=== PATIENT | female | born 1985 | race Caucasian/White ===

== ENCOUNTER → 2019-02-26 | Outpatient (CLI) | payer OTHER | LOC: LAB FS 10:57 | PROVIDERS: ATTEND Obstetrics & Gynecology | DX: N91.2 Amenorrhea, unspecified (principal) | CPT/HCPCS: 36415; 84702 ==

== ENCOUNTER 2019-06-01 15:12 | Emergency (ER) | payer OTHER ==
[~2019-06-01] VITALS: Ht 146 cm; Wt 45.6 kg
--- NOTE | 2019-06-01 15:31 | ED Cough/URI ---
General Chief Complaint: Respiratory Problems Stated Complaint: SOB History of Present Illness Date Seen by Provider: Jun 01, 2019 Time Seen by Provider: 15:28 Initial Comments This patient is a 33-year-old female presents to the emergency department c omplaining of ongoing cough sore throat and upper respiratory type symptoms. Patient describes this "to breathe at times. Patient states she been taking Advair, home as prescribed by PCP patient states was also prescribed amoxicillin without any help or relief. Patient denies fever. Patient states that she believes she had a negative strep and a negative flu and urgent care. 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 We did discuss at length. With patient. Patient's symptoms having gone on for more than 14 days. However patient is concerns chronic virus. We'll do evaluation to see if the patient meets the hopkins virus protocol. Patient will get chest x-ray and we'll repeat the strep and flu swabs. We'll evaluate her further as needed. Nursing staff will apply isolation protocol for further evaluation the patient Patient states the shortness of breath could be just because she has anxiety issues. Patient does not have any fever. And her symptoms have been more than 14 days as stated above. Timing/Duration: week (2-3 weeks) Severity/Quality: mild Associated Symptoms: cough, shortness of breath Allergies and Home Medications Allergies Coded Allergies: No Known Drug Allergies (Unverified , 06/01/19) Patient Home Medication List Home Medication List Reviewed: Yes Review of Systems Review of Systems Constitutional: no symptoms reported, see HPI; No chills, No diaphoresis, No dizziness, No fever, No malaise, No weakness, No weight gain, No weight loss, No other EENTM: see HPI, no symptoms reported; No ear discharge, No hearing loss, No ear pain, No blurred vision, No double vision, No eye pain, No tearing, No vision loss, No dental problems, No hoarseness, No mouth pain, No mouth swelling, No epistaxis, No nose congestion, No nose pain, No throat pain, No throat swelling, No other Respiratory: see HPI, cough, dyspnea on exertion Cardiovascular: No no symptoms reported, No see HPI, No chest pain, No edema, No Hx of Intervention, No palpitations, No syncope, No vascular heart diseas, No other Gastrointestinal: No RUQ, No LUQ, No RLQ, No LLQ, No no symptoms reported, No see HPI, No abdominal pain, No constipation, No diarrhea, No dysphagia, No sandi temesis, No heartburn, No jaundice, No loss of appetite, No melena, No nausea, No vomiting, No other Genitourinary: No no symptoms reported, No see HPI, No decreased output, No discharge, No dysuria, No frequency, No hematuria, No hesitancy, No incontinence, No nocturia, No pain, No other Musculoskeletal: No no symptoms reported, No see HPI, No back pain, No gout, No joint pain, No joint swelling, No muscle pain, No muscle stiffness, No muscle cramps, No muscle twitching, No muscle weakness, No neck pain, No other Skin: No no symptoms reported, No see HPI, No change in color, No change in hair/nails, No dryness, No hx of skin cancer, No lesions, No lumps, No pruritus, No rash, No other Physical Exam Capillary Refill : Height: '" Weight: lbs. oz. kg; BMI Method: General Appearance: WD/WN, no apparent distress; No mild distress, No moderate distress, No severe distress, No cachetic, No obese, No thin, No other Eyes: Bilateral Eye Normal Inspection, Bilateral Eye PERRL, Bilateral Eye EOMI HEENT: PERRL/EOMI, normal ENT inspection, TMs normal, pharyngeal erythema Neck: non-tender, full range of motion, supple, normal inspection, carotid bruit Respiratory: chest non-tender, lungs clear, normal breath sounds, no respiratory distress, no accessory muscle use Cardiovascular: normal peripheral pulses, regular rate, rhythm, no edema, no gallop, no JVD, no murmur Progress/Results/Core Measures Suspected Sepsis SIRS Temperature: Pulse: Respiratory Rate: Blood Pressure / Mean: Results/Orders Lab Results Laboratory Tests Test 06/01/19 15:49 Range/Units Group A Streptococcus Screen NEGATIVE NEGATIVE Micro Results Microbiology 06/01/19 Influenza Types A,B Antigen (GREG) - Final, Complete My Orders Orders - SAROJ THOMAS MD Chest 1 View Ap/Pa Only (06/01/19 15:26) Influenza A And B Antigens (06/01/19 15:26) Rapid Strep A Screen (06/01/19 15:26) Albuterol/Ipra Inhalation Soln (Duoneb I (06/01/19 16:00) Svn Small Volume Nebulizer (06/01/19 15:47) Diphenhydramine Tablet (Benadryl Tablet) (06/01/19 16:00) Medications Given in ED Current Medications Medications Dose Ordered Sig/Zeina Route Start Time Stop Time Status Last Admin Dose Admin Albuterol/ Ipratropium 3 ml ONCE ONCE INH 06/01/19 16:00 06/01/19 16:01 DC 06/01/19 15:56 3 ML Diphenhydramine HCl 25 mg ONCE ONCE PO 06/01/19 16:00 06/01/19 16:01 DC 06/01/19 16:12 25 MG Vital Signs/I&O Capillary Refill : Progress Note : Progress Note 1535 patient is declining us to perform a hopkins virus evaluation. She is agreeable for chest x-ray of breath. In repeat a strep and flu swab. Again patient is declining a hopkins virus for evaluation. 1620 name of evaluation in the emergency department. The patient has negative fever symptoms have been been on 14 days patient has no first hand exposure to someone who has tested positive for hopkins and the patient has not herself traveled into an endemic area. We did discuss at length with patient about further evaluation patient declines as stated above. Patient states she just believes that her anxiety acting up. Patient is on Advair at home we will add a Proventil inhaler. Patient is to follow the following instructions. I'll up with her PCP in 2-3 days. If patient has concerned she should self quarantine herself as instructed. Treatments In general, follow these three basic rules: (1) Keep warm and rest as much as possible. If you feel like resting, you should. (2) Take plenty of fluids. Food is not as important since appetite will return when you are well. (3) For fever, take Tylenol or Motrin in normal doses (see label on the bottle). If cough is present: Humidification and drinking lots of fluids helps to moisten and loosen up sticky mucus. Non-prescription drugs designed to suppress cough, such as Delysm, Robitussin, Mucinex are occasionally helpful. If you use an inhaler, you might need to use it more often. If throat is sore: Gargle with warm water (1/2 tsp salt in 1/2 glass of water). Try cold packs to the outside of your throat to help ease the pain of swallowing. Humidification of the air you breathe (use vaporizer, pans of evaporating water, or steaming tub or shower) and lots of fluids help. If temperature is elevated: Fluids are doubly important. Fever medicine (such as Tylenol or Motrin) should control temperature. Persistent temperature elevation of 103-104 degrees is a danger sign. If nausea and/or diarrhea are present: Eat only clear liquids, soups, or juices as tolerated. Remember fluids are important to prevent dehydration. If your symptoms worsen call [facility] for further instructions, especially if you notice: Persistent temperature elevation greater than 103-104 degrees despite fever medication Bloody sputum or increasing chest pain Increasing difficulty getting your breath Stiff neck preventing bending neck and placing chin on chest Diagnostic Imaging Diagonstic Imaging: Xray Plain Films/CT/US/NM/MRI: chest Comments Normal chest x-ray Departure Impression Primary Impression: Viral upper respiratory infection Disposition: 01 HOME, SELF-CARE Condition: Stable Departure-Patient Inst. Decision time for Depature: 16:21 Referrals: ALLY SOLIS APRN (PCP) Primary Care Physician Patient Instructions: Viral Upper Respiratory Infection, Adult (DC) Add. Discharge Instructions: Treatments In general, follow these three basic rules: (1) Keep warm and rest as much as possible. If you feel like resting, you should. (2) Take plenty of fluids. Food is not as important since appetite will return when you are well. (3) For fever, take Tylenol or Motrin in normal doses (see label on the bottle). If cough is present: Humidification and drinking lots of fluids helps to moisten and loosen up sticky mucus. Non-prescription drugs designed to suppress cough, such as Delysm, Robitussin, Mucinex are occasionally helpful. If you use an inhaler, you might need to use it more often. If throat is sore: Gargle with warm water (1/2 tsp salt in 1/2 glass of water). Try cold packs to the outside of your throat to help ease the pain of swallowing. Humidification of the air you breathe (use vaporizer, pans of evaporating water, or steaming tub or shower) and lots of fluids help. If temperature is elevated: Fluids are doubly important. Fever medicine (such as Tylenol or Motrin) should control temperature. Persistent temperature elevation of 103-104 degrees is a danger sign. If nausea and/or diarrhea are present: Eat only clear liquids, soups, or juices as tolerated. Remember fluids are important to prevent dehydration. If your symptoms worsen call [facility] for further instructions, dacia mahmood if you notice: Persistent temperature elevation greater than 103-104 degrees despite fever medication Bloody sputum or increasing chest pain Increasing difficulty getting your breath Stiff neck preventing bending neck and placing chin on chest All discharge instructions reviewed with patient and/or family. Voiced understanding. Scripts Albuterol Sulfate (VENTOLIN HFA) 1 Puff Puff 2 PUFF INH Q4H for 10 Days, #1 EACH 0 Refills 1 PUFF = 90 MCG Prov: SAROJ THOMAS MD 06/01/19 SAROJ THOMAS MD Jun 01, 2019 15:31
--- NOTE | 2019-06-01 15:35 | NUR ---
Patient declined any further testing at this time. States that she just wants an xray and believes part of her shortness of breath is related to anxiety.
--- NOTE | 2019-06-01 15:54 | Diagnostic Imaging Report ---
INDICATION: Chest tightness. TIME OF EXAM: 3:43 p.m. COMPARISON: No prior studies are available for comparison. The heart size is normal. The pulmonary vascularity is unremarkable. The lungs are clear. No infiltrate, effusion or pneumothorax is detected. IMPRESSION: No acute cardiopulmonary process is detected. Dictated by: Dictated on workstation # [id number]
[2019-06-01] MEDS ORDERED: RT-ALBUTEROL/IPRATROPIUM 3 ML (DUONEB) VIAL INH ONE (16:00)
[2019-06-01] MEDS ORDERED: diphenhydrAMINE 25 MG TAB (BENADRYL) PO ONE (16:00)
--- NOTE | 2019-06-01 16:19 | NUR ---
Patient does not meet any critiera for testing of Covid-19. She has not traveled out of the [facility]. She does not have a fever or had exposure with a person confirmed with COVID-19.
[2019-06-01] MEDS ORDERED: RT-ALBUINH INH (16:23)
[2019-06-01 16:26] VITALS: BP 145/81
== END 2019-06-01 16:26 | disposition home or self-care (01) ==
LOC: MERGE 15:14 → ER FS 15:14
DX: J06.9 Acute upper respiratory infection, unspecified (principal)
CPT/HCPCS: 71045; 87430; 87804

== ENCOUNTER 2019-06-04 01:17 | Emergency (ER) | payer OTHER ==
[~2019-06-04] VITALS: Ht 147 cm; Wt 45.0 kg
[~2019-06-04 01:17] MED LIST: RT-ALBUINH INH
--- OUTSIDE RECORDS SUMMARY | 2019-06-04 01:24 | XMS REPORT | Continuity of Care Document ---
Author Organization Unknown Address Unknown Phone Unavailable Allergies There is no data. Medications There is no data. Problems Date Dx Coded Attending Type Code Diagnosis Diagnosed By 03/04/2019 SEALSEBASTIAN Yeboah DO E Ot N91.2 AMENORRHEA, UNSPECIFIED 04/02/2019 SEALS DO, SEBASTIAN E Ot N91.2 AMENORRHEA, UNSPECIFIED Procedures There is no data. Results Test Result Range Serum or plasma choriogonadotropin measu rement (units/volume) - 02/26/19 11:35 Serum or plasma choriogonadotropin measurement (units/ volume) < m[iU]/mL <5 Encounters ACCT No. Visit Date/Time Discharge Status Pt. Type Provider Facility Loc./Unit Complaint [id number] 05/30/2019 16:40:00 05/30/2019 23:59:5 9 [facility] Outpatient ALLY SOLIS [facility] JAZMINE RODRIGUES [facility] [id number] 02/26/2019 10:57:00 019 23:59:59 [facility] Outpatient SEBASTIAN STANFORD DO [facility] LAB FS AMENORRHEA
--- NOTE | 2019-06-04 01:55 | ED General ---
General Chief Complaint: Psych/Social Disorder Stated Complaint: ANIETXY Nursing Triage Note: Pt is complaining of a "tightness" in her throat that she thinks is probably related to anxiety. Pt was seen in the ER two nights ago for the same complaint. Pt states she recently started Buspirone but doesn't feel like it does anything for her anxiety. Nursing Sepsis Screen: No Definite Risk History of Present Illness Date Seen by Provider: Jun 04, 2019 Time Seen by Provider: 01:25 Initial Comments Patient is here with feeling that there is something there when she swallows in the last several days had multiple visits to doctors in the emergency room for evaluation with little help she was swallowing some amino acid supplement tablets like something got caught and began coughing. Not sure if that's what caused it. There is a lot of stress she does have concerns about mold in their house her daughter just had a tonsillectomy [place] stressed about coronavirus and other things and she also realizes can all be due to that. No fever no chills no body aches no headache has had a little loose stool not sleeping well Timing/Duration: 4-5 Days Severity: Mild Modifying Factors: improves with Eating Associated Systoms: No Cough; Loss of Appetite, Nausea/Vomiting; No Shortness of Air, No Weakness Allergies and Home Medications Allergies Coded Allergies: No Known Drug Allergies (Unverified , 06/02/19) Home Medications Albuterol Sulfate 1 Puff Puff, 2 PUFF INH Q4H 1 PUFF = 90 MCG Prescribed by: SAROJ THOMAS on 06/01/19 [id number] Patient Home Medication List Home Medication List Reviewed: Yes Review of Systems Review of Systems Constitutional: No chills, No fever; malaise EENTM: throat swelling; No hoarseness, No nose congestion Respiratory: No cough, No hemoptysis, No orthopnea, No wheezing Cardiovascular: No edema, No palpitations Gastrointestinal: No abdominal pain, No nausea, No vomiting Genitourinary: No dysuria, No frequency Musculoskeletal: No back pain, No joint swelling, No muscle weakness; neck pain Skin: No lesions, No rash Psychiatric/Neurological: Anxiety Past Dvwlkfq-Yfrvzb-Jdyrzq Hx Past Med/Social Hx: Reviewed Nursing Past Med/Soc Hx Patient Social History Alcohol Use: Denies Use Recreational Drug Use: No Smoking Status: Never a Smoker 2nd Hand Smoke Exposure: No Recent Foreign Travel: No Contact w/Someone Who Travel: No Recent Infectious Disease Expo: No Recent Hopitalizations: No Physical Abuse: No Sexual Abuse: No Seasonal Allergies Seasonal Allergies: Yes Past Medical History Surgeries: No Respiratory: No Cardiac: No Neurological: No Genitourinary: No Gastrointestinal: No Musculoskeletal: No Endocrine: No HEENT: No Cancer: No Psychosocial: Yes Anxiety Integumentary: No Blood Disorders: No Physical Exam Vital Signs Vital Signs - First Documented 06/04/19 01:22 Temp 37.4 Pulse 87 Resp 18 B/P (MAP) 143/93 (110) Pulse Ox 100 O2 Delivery Room Air Capillary Refill : Less Than 3 Seconds Height, Weight, BMI Height: '" Weight: lbs. oz. kg; 20.00 BMI Method: General Appearance: Anxious, Mild Distress Eyes: Bilateral Eye PERRL, Bilateral Eye EOMI HEENT: PERRL/EOMI, TMs Normal, Normal ENT Inspection, Pharynx Normal Neck: Full Range of Motion, Normal Inspection, Non Tender; No Lymphadenopathy (L), No Lymphadenopathy (R) Respiratory: Lungs Clear, Normal Breath Sounds Cardiovascular: Regular Rate, Rhythm Gastrointestinal: Normal Bowel Sounds, No Organomegaly; No Distended, No Tenderness Back: Normal Inspection, No CVA Tenderness Extremity: No No Pedal Edema Neurologic/Psychiatric: Alert, Oriented x3, No Motor/Sensory Deficits Skin: Normal Color, Warm/Dry Progress/Results/Core Measures Suspected Sepsis Recent Fever Within 48 Hours: No Infection Criteria Present: None New/Unexplained Altered Menta: No Sepsis Screen: No Definite Risk SIRS Temperature: Pulse: 87 Respiratory Rate: 18 Blood Pressure 143 /93 Mean: 110 Results/Orders My Orders Orders - MARISSA FONSECA JR, MD Ct Neck (Soft Tissue) W (06/04/19 01:51) Ed Iv/Invasive Line Start (06/04/19 02:04) Iohexol Injection (Omnipaque 350 Mg/Ml 1 (06/04/19 02:15) Received Contrast (Hold Metformin- Contr (06/04/19 02:15) Sodium Chloride Flush (Catheter Flush Sy (06/04/19 02:15) Ns (Ivpb) (Sodium Chloride 0.9% Ivpb Bag (06/04/19 02:15) Chest 1 View Ap/Pa Only (06/04/19 02:08) Medications Given in ED Current Medications Medications Dose Ordered Sig/Zeina Route Start Time Stop Time Status Last Admin Dose Admin Iohexol 75 ml ONCE ONCE IV 06/04/19 02:15 06/04/19 02:16 DC 06/04/19 02:18 75 ML Sodium Chloride 10 ml NEEDED PRN IV 06/04/19 02:15 06/04/19 02:18 10 ML Sodium Chloride 100 ml ONCE ONCE IV 06/04/19 02:15 06/04/19 02:16 DC 06/04/19 02:18 75 ML Vital Signs/I&O 06/04/19 01:22 Temp 37.4 Pulse 87 Resp 18 B/P (MAP) 143/93 (110) Pulse Ox 100 O2 Delivery Room Air Capillary Refill : Less Than 3 Seconds Blood Pressure Mean: 110 Progress Note : Time: 03:[address] scan demonstrates a small thyroglossal duct cyst that appears to be infected we'll go ahead with Rocephin IM and follow that up with Augmentin we'll have her follow up with her PCP for further care of this. Departure Impression Primary Impression: Thyroglossal duct cyst Disposition: HOME, SELF-CARE Condition: Stable Departure-Patient Inst. Referrals: ALLY SOLIS APRN (PCP/Family) Primary Care Physician Scripts Amoxicillin/Potassium Clav (Augmentin 875-125 Tablet) 1 Each Tablet 1 EACH PO BID, #14 TAB 0 Refills Prov: MARISSA FONSECA JR, MD 06/04/19 MARISSA FONSECA JR, MD Jun 04, 2019 01:55
[2019-06-04] MEDS ORDERED: HOLD METFORMIN - RECEIVED CONTRAST 20 ML VIAL IV SCH (02:15)
[2019-06-04] MEDS ORDERED: IOHEXOL 350 MG/ML 100 ML (OMNIPAQUE 350) VIAL IV ONE (02:15)
[2019-06-04] MEDS ORDERED: NS 100 ML (IVPB) BAG IV ONE (02:15)
[2019-06-04] MEDS ORDERED: CATHETER FLUSH 10 ML SYR IV PRN (02:15)
[2019-06-04] MEDS ORDERED: AMOX-358 PO (03:27)
[2019-06-04] MEDS ORDERED: cefTRIAXone FOR IV USE 1,000 MG in WATER (STERILE) FOR INJECTION 10 ML IV ONE (03:30)
[2019-06-04 03:38] VITALS: BP 138/88
--- NOTE | 2019-06-04 06:04 | Diagnostic Imaging Report ---
INDICATION: Shortness of breath. Comparison with 06/01/2019. FINDINGS: Portable chest shows lungs to be well-aerated and clear. Heart is not enlarged. No pneumothorax or pleural effusion. No bony abnormalities. IMPRESSION: Normal portable chest. No significant change since previous exam. Dictated by: Dictated on workstation # [id number]
--- NOTE | 2019-06-04 08:08 | Diagnostic Imaging Report ---
PROCEDURE: CT neck soft tissue with contrast. TECHNIQUE: Multiple contiguous axial images were obtained through the neck after the administration of contrast. Auto Exposure Controls were utilized during the CT exam to meet ALARA standards for radiation dose reduction. INDICATION: Shortness of breath. Difficulty swallowing. COMPARISON: None. FINDINGS: A small cystic structure seen in the midline of the neck interposed between the strap muscles anterior and inferior to the hyoid measuring 0.5 x 0.4 cm and 0.8 cm craniocaudal. There is also a component of this cystic structure which is superior and posterior to this more superficial collection left of midline measuring 0.7 x 0.5 cm and 0.9 cm craniocaudal. The posterior nasopharynx and oropharynx demonstrate appropriate symmetry. There is no displacement of the parapharyngeal fat planes. There is no abnormal process evident within the prevertebral or retropharyngeal space. There is no evidence of abnormal thickening of the epiglottis or aryepiglottic folds. The vocal folds appear symmetric. The parotid, submandibular and thyroid gland are unremarkable. No pathologically enlarged cervical lymph nodes are evident. No focal inflammatory changes are demonstrated. The vascular structures the neck demonstrate no evidence of high-grade stenosis on this nondedicated exam. The visualized lung apices are clear. The visualized intracranial contents demonstrate no evidence of pathologic intracranial enhancement or intracranial mass effect. Visualized orbital contents are unremarkable. The visualized paranasal sinuses are clear. The mastoids and middle ears are clear. No acute osseous abnormality in the cervical spine. IMPRESSION: 1. Small bilobed cystic structure left of midline posterior to the hyoid extending into the more superficial soft tissues of the neck in the midline interposed between the strap muscles. This appearance is suggestive of a thyroglossal duct cyst. The wall is somewhat thickened, which may represent inflammatory changes. No cervical lymphadenopathy is seen. 2. Unremarkable appearance of the aerodigestive tract. No airway narrowing or suspicious masses. Agree with overnight report. Dictated by: Dictated on workstation # [id number]
== END 2019-06-04 03:38 | disposition home or self-care (01) ==
LOC: EDUNIT# 01:17 → ER FS 01:20
DX: Q89.2 Congenital malformations of other endocrine glands (principal)
CPT/HCPCS: 70491; 71045

== ENCOUNTER 2019-06-06 05:41 | Emergency (ER) | payer OTHER ==
[~2019-06-06] VITALS: Ht 147.3 cm; Wt 45.4 kg
[~2019-06-06 05:41] MED LIST changes: +AMOX-358 PO
--- OUTSIDE RECORDS SUMMARY | 2019-06-06 05:47 | XMS REPORT | Continuity of Care Document ---
Author Organization Unknown Address Unknown Phone Unavailable Allergies Active Description Code Type Severity Reaction Onset Reported/Identified Relationship to Patient Clinical Status Yes No Known Drug Allergies [id number] Drug Allergy Unknown N/A 06/01/2019 Medications There is no data. Problems Date Dx Coded Attending Type Code Diagnosis Diagnosed By 03/04/2019 SEALS DO, SEBASTIAN E Ot N91.2 AMENORRHEA, UNSPECIFIED 04/02/2019 SEALS DO, SEBASTIAN E Ot N91.2 AMENORRHEA, UNSPECIFIED 06/04/2019 SEALS DO, SEBASTIAN E Ot N91.2 AMENORRHEA, UNSPECIFIED 06/04/2019 Ot J06.9 ACUT E UPPER RESPIRATORY INFECTION, UNSPE 06/04/2019 Ot R05 COUGH Procedures There is no data. Results Test Result Range Serum or plasma choriogonadotropin measu rement (units/volume) - 02/26/19 11:35 Serum or plasma choriogonadotropin measurement (units/ volume) < m[iU]/mL <5 Bacterial throat culture - 06/01/19 15:4 9 Bacterial throat culture NBS NRG Encounters ACCT No. Visit Date/Time Discharge Status Pt. Type Provider Facility Loc./Unit Complaint [id number] 05/30/2019 16:40:00 05/30/2019 23:59:5 9 [facility] Outpatient ALLY SOLIS [facility] JAZMINE RODRIGUES [facility] [id number] 06/04/2019 01:20:00 020 03:38:00 DIS Emergency RAYMUNDO ARROYO, MARISSA Pedraza [facility] ER FS ANIETXY [id number] 02/26/2019 10:57:00 019 23:59:59 C[facility] Outpatient SEALS DO, SEBASTIAN E [facility] LAB FS AMENORRHEA [id number] 06/03/2019 09:53:00 Document Registration
[2019-06-06 06:25] LABS: CLARITY,URINE CLEAR; COLOR,URINE YELLOW; GLUCOSE, URINE (UA) NEGATIVE (NEGATIVE); KETONES,URINE 1+ (NEGATIVE); NITRITE,URINE NEGATIVE (NEGATIVE); PROTEIN,URINE NEGATIVE (NEGATIVE)
[2019-06-06 06:26] LABS: BACTERIA,URINE TRACE /HPF; BILIRUBIN,URINE NEGATIVE (NEGATIVE); LEUKOCYTE ESTERASE ,URINE NEGATIVE (NEGATIVE); SQUAMOUS EPITHELIAL CELL,UR 25-50 /HPF
[2019-06-06 06:45] LABS: HEMATOCRIT 31 % (35-52); HEMOGLOBIN 9.4 G/DL (11.5-16.0); MEAN CORPUSCULAR HEMOGLOBIN 21 PG (25-34); MEAN CORPUSCULAR HGB CONC 31 G/DL (32-36); MEAN CORPUSCULAR VOLUME 69 FL (80-99); MEAN PLATELET VOLUME 10.1 FL (7.4-10.4); PLATELET COUNT 299 10^3/uL (130-400); RED CELL DISTRIBUTION WIDTH 16.6 % (10.0-14.5); WHITE BLOOD COUNT 8.9 10^3/uL (4.3-11.0)
[2019-06-06 06:46] LABS: BASOPHILS # (AUTO) 0.1 10^3/uL (0.0-0.1); BASOPHILS % (AUTO) 1 % (0-10); EOSINOPHILS % (AUTO) 0 % (0-10); LYMPHOCYTES # (AUTO) 1.6 X 10^3 (1.0-4.0); LYMPHOCYTES % (AUTO) 18 % (12-44); MONOCYTES # (AUTO) 0.6 X 10^3 (0.0-1.0); MONOCYTES % (AUTO) 7 % (0-12); NEUTROPHILS # (AUTO) 6.6 X 10^3 (1.8-7.8); NEUTROPHILS % (AUTO) 74 % (42-75)
--- NOTE | 2019-06-06 06:54 | ED General ---
General Chief Complaint: Back Problems Stated Complaint: SWELLING OF NECK AND SIDE PAIN Nursing Triage Note: PT. STATED SHE WOKE UP TO RIGHT FLANK PAIN THIS AM. SHE REPORTED SHE HAS NAUSEA AND HAS BEEN DRY HEAVING. PT. STATED HER NECK IS MORE SWOLLEN THAN IT HAS BEEN. PT. HAS BEEN TAKING IBUPROFEN AND AN ANTIBIOTIC FOR HER NECK. PT. WILL NOT BE ABLE TO SEE DOCTOR ROSANNE UNTIL NEXT WEEK. 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 she got IM Rocephin, was prescribed Augmentin says she did fill the prescription and took those prescribed doses yesterday patient now presents complaining that she did not sleep all night has right flank pain pain throughout the abdomen nausea vomiting some diarrhea slight urinary symptoms and feels her neck is more swollen Allergies and Home Medications Allergies Coded Allergies: No Known Drug Allergies (Unverified , 06/02/19) Home Medications Albuterol Sulfate 1 Puff Puff, 2 PUFF INH Q4H 1 PUFF = 90 MCG Prescribed by: SAROJ THOMAS on 06/01/19 1623 Amoxicillin/Potassium Clav 1 Each Tablet, 1 EACH PO BID Prescribed by: MARISSA FONSECA on 06/04/19 0327 Patient Home Medication List Home Medication List Reviewed: Yes Review of Systems Review of Systems Constitutional: no symptoms reported Respiratory: no symptoms reported Past Wzxqrfv-Bfxdhl-Exjyvu Hx Patient Social History 2nd Hand Smoke Exposure: No Recent Foreign Travel: No Contact w/Someone Who Travel: No Recent Infectious Disease Expo: No Recent Hopitalizations: No Physical Abuse: No Sexual Abuse: No Mistreated: No Fear: No Seasonal Allergies Seasonal Allergies: Yes Past Medical History Surgeries: No Respiratory: No Cardiac: No Neurological: No Genitourinary: No Gastrointestinal: No Musculoskeletal: No Endocrine: No HEENT: No Cancer: No Psychosocial: Yes Anxiety Integumentary: No Blood Disorders: No Physical Exam Vital Signs Vital Signs - First Documented 06/06/19 05:45 Temp 37.3 Pulse 98 Resp 16 B/P (MAP) 143/84 (103) Pulse Ox 99 O2 Delivery Room Air Capillary Refill : Less Than 3 Seconds Height, Weight, BMI Height: '" Weight: lbs. oz. kg; 20.00 BMI Method: General Appearance: No Apparent Distress, Anxious, Thin Eyes: Bilateral Eye PERRL, Bilateral Eye EOMI HEENT: PERRL/EOMI, TMs Normal, Pharynx Normal; No Tonsillar Exudate, No Tonsillar Enlargement; Other Neck: Full Range of Motion, Normal Inspection, Non Tender, Other (exam is without obvious abnormality) Respiratory: Lungs Clear, Normal Breath Sounds Cardiovascular: Regular Rate, Rhythm Gastrointestinal: Normal Bowel Sounds, Non Tender, Soft; No Rebound, No Tenderness; Other (no CVA tenderness) Focused Exam Lactate Level 06/06/19 06:39: Lactic Acid Level 1.06 Lactic Acid Level Laboratory Tests Test 06/06/19 06:39 Lactic Acid Level 1.06 MMOL/L (0.50-2.00) Progress/Results/Core Measures Suspected Sepsis Recent Fever Within 48 Hours: No Infection Criteria Present: None New/Unexplained Altered Menta: No Sepsis Screen: No Definite Risk SIRS Temperature: Pulse: 98 Respiratory Rate: 16 Laboratory Tests 06/06/19 06:39: White Blood Count 8.9 Blood Pressure 143 /84 Mean: 103 06/06/19 06:39: Lactic Acid Level 1.06 Laboratory Tests 06/06/19 06:39: Creatinine 0.75, Platelet Count 299, Total Bilirubin 0.3 Results/Orders Lab Results Laboratory Tests Test 06/06/19 06:10 06/06/19 06:39 Range/Units Urine Color YELLOW Urine Clarity CLEAR Urine pH 6.0 5-9 Urine Specific [place] 1.025 H 1.016-1.022 Urine Protein NEGATIVE NEGATIVE Urine Glucose (UA) NEGATIVE NEGATIVE Urine Ketones 1+ H NEGATIVE Urine Nitrite NEGATIVE NEGATIVE Urine Bilirubin NEGATIVE NEGATIVE Urine Urobilinogen 0.2 < = 1.0 MG/DL Urine Leukocyte Esterase NEGATIVE NEGATIVE Urine RBC (Auto) NEGATIVE NEGATIVE Urine RBC NONE /HPF Urine WBC 5-10 H /HPF Urine Squamous Epithelial Cells 25-50 H /HPF Urine Crystals NONE /LPF Urine Bacteria TRACE /HPF Urine Casts NONE /LPF Urine Mucus MODERATE H /LPF Urine Culture Indicated YES White Blood Count 8.9 4.3-11.0 10^3/uL Red Blood Count 4.46 4.35-5.85 10^6/uL Hemoglobin 9.4 L 11.5-16.0 G/DL Hematocrit 31 L 35-52 % Mean Corpuscular Volume 69 L 80-99 FL Mean Corpuscular Hemoglobin 21 L 25-34 PG Mean Corpuscular Hemoglobin Concent 31 L 32-36 G/DL Red Cell Distribution Width 16.6 H 10.0-14.5 % Platelet Count 299 130-400 10^3/uL Mean Platelet Volume 10.1 7.4-10.4 FL Neutrophils (%) (Auto) 74 42-75 % Lymphocytes (%) (Auto) 18 12-44 % Monocytes (%) (Auto) 7 0-12 % Eosinophils (%) (Auto) 0 0-10 % Basophils (%) (Auto) 1 0-10 % Neutrophils # (Auto) 6.6 1.8-7.8 X 10^3 Lymphocytes # (Auto) 1.6 1.0-4.0 X 10^3 Monocytes # (Auto) 0.6 0.0-1.0 X 10^3 Eosinophils # (Auto) 0.0 0.0-0.3 10^3/uL Basophils # (Auto) 0.1 0.0-0.1 10^3/uL Sodium Level 138 135-145 MMOL/L Potassium Level 3.2 L 3.6-5.0 MMOL/L Chloride Level 102 98-107 MMOL/L Carbon Dioxide Level 19 L 21-32 MMOL/L Anion Gap 17 H 5-14 MMOL/L Blood Urea Nitrogen 4 L 7-18 MG/DL Creatinine 0.75 0.60-1.30 MG/DL Estimat Glomerular Filtration Rate > 60 BUN/Creatinine Ratio 5 Glucose Level 100 70-105 MG/DL Lactic Acid Level 1.06 0.50-2.00 MMOL/L Calcium Level 9.1 8.5-10.1 MG/DL Corrected Calcium 8.9 8.5-10.1 MG/DL Total Bilirubin 0.3 0.1-1.0 MG/DL Aspartate Amino Transf (AST/SGOT) 16 5-34 U/L Alanine Aminotransferase (ALT/SGPT) 10 0-55 U/L Alkaline Phosphatase 44 40-136 U/L Total Protein 7.1 6.4-8.2 GM/DL Albumin 4.3 3.2-4.5 GM/DL My Orders Orders - MARÍA STOKES MD Urinalysis (06/06/19 06:22) Urine Bedside (06/06/19 06:22) Urine Culture (06/06/19 06:10) Iv/Invasive Line Insertion .IV start (06/06/19 06:30) Cbc With Automated Diff (06/06/19 06:30) Comprehensive Metabolic Panel (06/06/19 06:30) Lactic Acid Analyzer (06/06/19 06:30) Ns Iv 1000 Ml (Sodium Chloride 0.9%) (06/06/19 07:30) Ct Abdomen/Pelvis Wo (06/06/19 07:17) Ns Iv 1000 Ml (Sodium Chloride 0.9%) (06/06/19 07:17) Ondansetron Injection (Zofran Injectio (06/06/19 07:45) Medications Given in ED Current Medications Medications Dose Ordered Sig/Zeina Route Start Time Stop Time Status Last Admin Dose Admin Ondansetron HCl 4 mg ONCE ONCE IVP 06/06/19 07:45 06/06/19 07:46 DC 06/06/19 07:48 4 MG Vital Signs/I&O 06/06/19 05:45 Temp 37.3 Pulse 98 Resp 16 B/P (MAP) 143/84 (103) Pulse Ox 99 O2 Delivery Room Air Capillary Refill : Less Than 3 Seconds Blood Pressure Mean: 103 Progress Note : Progress Note Hemoglobin is 9.4 with an MCV of 69 white blood count 8900 UA shows 25-50 squamous epithelial cells 5-10 whites no leukocyte esterase or nitrites 1+ ketones culture was triggered (patient just received IM Rocephin 2 days ago and is on Augmentin) UCG neg Chemistries show potassium of 3.2 otherwise normal lactic acid normal CT shows just a left ovarian follicle really no acute findings Departure Impression Primary Impression: Right flank pain Additional Impression: Microcytic anemia Disposition: 01 HOME, SELF-CARE Condition: Stable Departure-Patient Inst. Decision time for Depature: 08:57 Referrals: ALLY SOLIS APRN (PCP/Family) Primary Care Physician Patient Instructions: Flank Pain Scripts Ferrous Sulfate (Iron) 325 Mg Tablet 325 MG PO BID, #60 TAB Prov: MARÍA STOKES MD 06/06/19 Ondansetron (Ondansetron Odt) 4 Mg Tab.rapdis 4 MG PO Q6H for na, #12 TAB Prov: MARÍA STOKES MD 06/06/19 MARÍA STOKES MD Jun 06, 2019 06:54
[2019-06-06 07:06] LABS: ALANINE AMINOTRANSFERASE 10 U/L (0-55); ALBUMIN 4.3 GM/DL (3.2-4.5); ALKALINE PHOSPHATASE 44 U/L (40-136); BILIRUBIN,TOTAL 0.3 MG/DL (0.1-1.0); BUN/CREATININE RATIO 5; CALCIUM 9.1 MG/DL (8.5-10.1); CARBON DIOXIDE 19 MMOL/L (21-32); CHLORIDE 102 MMOL/L (98-107); CREATININE SERUM 0.75 MG/DL (0.60-1.30); GFR ESTIMATED > 60; GLUCOSE 100 MG/DL (70-105); POTASSIUM 3.2 MMOL/L (3.6-5.0); SODIUM 138 MMOL/L (135-145); TOTAL PROTEIN 7.1 GM/DL (6.4-8.2)
[2019-06-06] MEDS ORDERED: NS IV 1000 ML 1,000 ML ONE (07:17)
[2019-06-06] MEDS ORDERED: NS IV 1000 ML 1,000 ML IV SCH (07:30)
[2019-06-06] MEDS ORDERED: ONDANSETRON 4 MG/2 ML (SDV) Z0FRAN IVP ONE (07:45)
--- NOTE | 2019-06-06 08:47 | Diagnostic Imaging Report ---
PROCEDURE: CT abdomen and pelvis without contrast. TECHNIQUE: Multiple contiguous axial images were obtained through the abdomen and pelvis without the use of intravenous contrast. Auto Exposure Controls were utilized during the CT exam to meet ALARA standards for radiation dose reduction. DATE: June 06, 2019. COMPARISON: None. INDICATION: 33-year-old female, right flank pain and diarrhea. FINDINGS: There are limitations for evaluation of the abdominal organs, neoplastic processes, abscess, and limited evaluation of the vasculature relating to the lack of intravenous contrast. The visualized portions of the lungs are clear. The heart is not enlarged. There is no pericardial effusion. There is a 5 mm low-attenuation lesion in the left lobe of the liver on axial image 28 which is too small to characterize. The liver is normal in size and contour. The gallbladder is unremarkable. There is no intrahepatic or extrahepatic bile duct dilation. The main pancreatic duct is not abnormally dilated. Limited noncontrast evaluation of the pancreatic parenchyma is unremarkable. The spleen is normal in size. The adrenal glands are unremarkable. There is a 3 mm low-attenuation lesion in the right kidney on axial image 44 which is too small to characterize. The urinary collecting systems are not distended. There is no identified renal or ureteral stone. There are pelvic calcifications consistent with phleboliths. The urinary bladder is grossly unremarkable in appearance. There is a low-attenuation left adnexal lesion measuring approximately 1.7 cm in size on axial image 107 most likely relating to a left ovarian follicle. There is a very small amount of free pelvic fluid which may be physiologic. The intestinal tract is not distended. The appendix is well seen on axial image 106 and adjacent sequential images. There is no evidence of acute appendicitis. There is no free intraperitoneal air. There is no drainable fluid collection. There is no identified abnormally enlarged lymph node in the abdomen or pelvis which meets CT size criteria for adenopathy. There is no identified acute bony abnormality. IMPRESSION: CT ABDOMEN AND PELVIS. 1. Low-attenuation lesion in the left adnexa measuring 1.7 cm in size most likely relating to a left ovarian follicle. Very small amount of free pelvic fluid is potentially physiologic. 2. No identified acute abnormality in the abdomen or pelvis. Dictated by: Dictated on workstation # [id number]
[2019-06-06] MEDS ORDERED: FERR-84 PO (08:59)
[2019-06-06] MEDS ORDERED: ONDA4TAB11 PO (08:59)
[2019-06-06 09:03] VITALS: BP 129/78
== END 2019-06-06 09:03 | disposition home or self-care (01) ==
LOC: EDUNIT# 05:41 → ER FS 05:43
DX: R10.9 Unspecified abdominal pain (principal); D50.9 Iron deficiency anemia, unspecified
CPT/HCPCS: 36415; 74176; 80053; 81000; 83605; 84703; 85025; 87088; 96374

== ENCOUNTER 2019-06-14 12:59 | Emergency (ER) | payer OTHER ==
[~2019-06-14] VITALS: Ht 147.3 cm; Wt 43.7 kg
[~2019-06-14 12:59] MED LIST changes: +FERR-84 PO; +ONDA4TAB11 PO
--- OUTSIDE RECORDS SUMMARY | 2019-06-14 13:05 | XMS REPORT | Continuity of Care Document ---
Author Organization Unknown Address Unknown Phone Unavailable Allergies Active Description Code Type Severity Reaction Onset Reported/Identified Relationship to Patient Clinical Status Yes No Known Drug Allergies [id number] Drug Allergy Unknown N/A 06/01/2019 Medications There is no data. 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 9 IRON DEFICIENCY ANEMIA, UNSPECIFIED 06/06/2019 MARÍA STOKES MD P Ot R10. 9 UNSPECIFIED ABDOMINAL PAIN 06/06/2019 SEALS DO, SEBASTIAN E Ot N91.2 AMENORRHEA, UNSPECIFIED 06/11/2019 MARÍA STOKES MD Ot D50. 9 IRON DEFICIENCY ANEMIA, UNSPECIFIED 06/11/2019 MARÍA STOKES MD Ot R10. 9 UNSPECIFIED ABDOMINAL PAIN 06/13/2019 MARÍA STOKES MD Ot D50. 9 IRON DEFICIENCY ANEMIA, UNSPECIFIED 06/13/2019 MARÍA STOKES MD Ot R10. 9 UNSPECIFIED ABDOMINAL PAIN Procedures There is no data. Results Test Result Range Serum or plasma choriogonadotropin measu rement (units/volume) - 02/26/19 11:35 Serum or plasma choriogonadotropin measurement (units/ volume) < m[iU]/mL <5 Bacterial throat culture - 06/01/19 15:4 9 Bacterial throat culture NBS NRG Complete urinalysis with reflex to cultu re - 06/06/19 06:10 Urine color determination YELLOW NRG Urine clarity determination CLEAR NR G Urine pH measurement by test strip 6.0 5-9 Specific gravity of urine by test strip 1.025 1.016-1.022 Urine protein assay by test strip, semi-quantitative NEGATIVE NEGATIVE Urine glucose detection by automated test strip NE GATIVE NEGATIVE Erythrocytes detection in urine sediment by light micr oscopy NEGATIVE NEGATIVE Urine ketones detection by automated test strip 1+ NEGATIVE Urine nitrite detection by test strip NEGATIVE NEGATIVE Urine total bilirubin detection by test strip NEGA TIVE NEGATIVE Urine urobilinogen measurement by automated test strip (mass/volume) 0.2 mg/dL < = 1.0 Urine leukocyte esterase detection by dipstick NEG ATIVE NEGATIVE Automated urine sediment erythrocyte cou nt by microscopy (number/high power field) NONE NRG Automated urine sediment leukocyte count by microscopy (number/high power field) [HPF] NRG Bacteria detection in urine sediment by light microsco py TRACE NRG Squamous epithelial cells detection in u rine sediment by light microscopy 25-50 NRG Crystals detection in urine sediment by light microsco py NONE NRG Casts detection in urine sediment by light microscopy NONE NRG Mucus detection in urine sediment by light microscopy MODERATE NRG Complete urinalysis with reflex to culture YES NRG Bacterial urine culture - 06/06/19 06:10 Bacterial urine culture NG NRG Complete blood count (CBC) with automate d white blood cell (WBC) differential - 06/06/19 06:39 Blood leukocytes automated count (number/volume) 8.9 10*3/uL 4.3-11.0 Blood erythrocytes automated count (number/volume) 4.46 10*6/uL 4.35-5.85 Venous blood hemoglobin measurement (mass/volume) 9.4 g/dL 11.5-16.0 Blood hematocrit (volume fraction) 31 % 35-52 Automated erythrocyte mean corpuscular volume 69 [ foz_us] 80-99 Automated erythrocyte mean corpuscular h emoglobin (mass per erythrocyte) 21 pg 25-34 Automated erythrocyte mean corpuscular h emoglobin concentration measurement (mass/volume) 31 g/dL 32-36 Automated erythrocyte distribution width ratio 16. 6 % 10.0- 14.5 Automated blood platelet count (count/volume) 299 10*3/uL 130-400 Automated blood platelet mean volume measurement 10.1 [foz_us] 7.4-10.4 Automated blood neutrophils/100 leukocytes 74 % 42-75 Automated blood lymphocytes/100 leukocytes 18 % 12-44 Blood monocytes/100 leukocytes 7 % 0-12 Automated blood eosinophils/100 leukocytes 0 % 0-10 Automated blood basophils/100 leukocytes 1 % 0-10 Blood neutrophils automated count (number/volume) 6.6 10*3 1.8-7.8 Blood lymphocytes automated count (number/volume) 1.6 10*3 1.0-4.0 Blood monocytes automated count (number/volume) 0. 6 10*3 0.0-1.0 Automated eosinophil count 0.0 10*3/uL 0 .0-0.3 Automated blood basophil count (count/volume) 0.1 10*3/uL 0.0-0.1 Blood lactic acid measurement (moles/vol ume) - 06/06/19 06:39 Blood lactic acid measurement (moles/volume) 1.06 mmol/L 0.50-2.00 Comprehensive metabolic panel - 06/06/19 06:39 Serum or plasma sodium measurement (moles/volume) 138 mmol/L 135-145 Serum or plasma potassium measurement (moles/volume) 3.2 mmol/L 3.6-5.0 Serum or plasma chloride measurement (moles/volume) 102 mmol/L 98-107 Carbon dioxide 19 mmol/L 21-32 Serum or plasma anion gap determination (moles/volume) 17 mmol/L 5-14 Serum or plasma urea nitrogen measurement (mass/volume ) 4 mg/dL 7-18 Serum or plasma creatinine measurement (mass/volume) 0.75 mg/dL 0.60-1.30 Serum or plasma urea nitrogen/creatinine mass ratio 5 NRG Serum or plasma creatinine measurement w ith calculation of estimated glomerular filtration rate > NRG Serum or plasma glucose measurement (mass/volume) 100 mg/dL 70-105 Serum or plasma calcium measurement (mass/volume) 9.1 mg/dL 8.5-10.1 Serum or plasma total bilirubin measurement (mass/volu me) 0.3 mg/dL 0.1-1.0 Serum or plasma alkaline phosphatase angela surement (enzymatic activity/volume) 44 U/L 40-136 Serum or plasma aspartate aminotransfera se measurement (enzymatic activity/volume) 16 U/L 5-34 Serum or plasma alanine aminotransferase measurement (enzymatic activity/volume) 10 U/L 0-55 Serum or plasma protein measurement (mass/volume) 7.1 g/dL 6.4-8.2 Serum or plasma albumin measurement (mass/volume) 4.3 g/dL 3.2-4.5 CALCIUM CORRECTED 8.9 mg/dL 8.5-10.1 TSH w/ FREE T4 - 06/06/19 09:40 TSH 0.18 mIU/L NRG T4, FREE 1.7 ng/dL 0.8-1.8 Encounters ACCT No. Visit Date/Time Discharge Status Pt. Type Provider Facility Loc./Unit Complaint [id number] 05/30/2019 16:40:00 05/30/2019 23:59:5 9 CLS Outpatient ALLY SOLIS [facility] [id number] 06/06/2019 09:45:00 Document Registration [id number] 06/06/2019 05:43:00 020 09:03:00 DIS Outpatient DIVYA ARROYO, MARÍA Bahena [facility] ER FS SWELLING OF NECK AND SI DE PAIN [id number] 06/04/2019 01:20:00 020 03:38:00 DIS Emergency MARISSA FONSECA MD [facility] ER FS ANIETXY [id number] 02/26/2019 10:57:00 019 23:59:59 CLS Outpatient SEBASTIAN STANFORD DO [facility] LAB FS AMENORRHEA [id number] 06/03/2019 09:53:00 Document Registration
[2019-06-14 13:12] VITALS: BP 131/95
--- NOTE | 2019-06-14 13:12 | NUR ---
Patient to ED 2 with extensive discussion of ER visits and the chief c/o's not resolving. Pt reports she is following up with her appts and originally earlier in month her provider ordered Buspar for her and she is using 1/4 - 1/2 pill as she feels it is too much. Pt had gotten a thyroid panel done at [facility] after last ER visit and rec'd results of hyperthroidism. Pt had not wanted to go into [facility] and pickle maker her Propanolol ordered 06/11 but picked it up just prior to arrival and took 1/2 tab of the 20 mg tablet. Pt reports fear of Coronovirus, fear to go anywhere or touch anything, and also fear she is having a heart attack all the time. Pt reports tightness in neck feeling for weeks and a CT revealed a Thyroglossal cyst. Dr Shirley brought up to date of all visits and her symptoms: +weight loss, +sweating, +palpitations, +anxiousness, +hair loss/brittle, +feeling of neck tighness "can't breathe". Pt has verbalized the many c/o's each visit and reports this visit is in hopes of getting a referral to an Gear Milling Machine Set Up Operator YARITZA as waiting to be scheduled 1 mo out is too far.
--- NOTE | 2019-06-14 13:35 | ED General ---
General Chief Complaint: General Problems/Pain Stated Complaint: ARM NUMBNESS,DIZZY Nursing Triage Note: Pt arrives to ED appearing very anxious wearing her own cloth face mask reporting tingling in arms and not getting better. Pt has been in ED 3 times this month and describes feeling of tightness in throat/neck, palpitations, and anxious. Pt recently got thyroid panel at [facility] revealing hyperthyroidism and had not gone to get Propanolol script till right before arrival. Pt states she needs to see an Vascular Radiologist right away and was actually referred by Dr Suarez and no one scheduling for over a month. Nursing Sepsis Screen: No Definite Risk Source of Information: Patient Exam Limitations: No Limitations History of Present Illness Date Seen by Provider: Jun 14, 2019 Time Seen by Provider: 13:30 Initial Comments Patient presents with concern of intermittent numbness and tingling in either arm. Symptoms going on for a couple days. Recently (2 days ago) diagnosed with hyperthyroidism and given a prescription for propranolol 20 mg twice a day. She took her first one half of a pill, 10 mg this morning. Patient also complains of rapid heart rate, palpitations, intermittent shortness of air. Also recently diagnosed with anemia and was placed on iron. She also states she has lost weight even though she's been trying to gain weight. Also having difficulty sleeping Allergies and Home Medications Allergies Coded Allergies: No Known Drug Allergies (Unverified , 06/02/19) Home Medications Albuterol Sulfate 1 Puff Puff, 2 PUFF INH Q4H 1 PUFF = 90 MCG Prescribed by: SAROJ THOMAS on 06/01/19 1623 Amoxicillin/Potassium Clav 1 Each Tablet, 1 EACH PO BID Prescribed by: MARISSA FONSECA on 06/04/19 0327 Ferrous Sulfate 325 Mg Tablet, 325 MG PO BID Prescribed by: MARÍA STOKES on 06/06/19 0808 Ondansetron 4 Mg Tab.rapdis, 4 MG PO Q6H Prescribed by: MARÍA STOKES on 06/06/19 0859 Patient Home Medication List Home Medication List Reviewed: Yes Review of Systems Review of Systems Constitutional: see HPI; No chills, No diaphoresis; dizziness; No fever; malaise, weight loss EENTM: no symptoms reported Respiratory: No cough; dyspnea on exertion, short of breath Cardiovascular: see HPI; No edema; palpitations; No syncope, No vascular heart diseas Gastrointestinal: No abdominal pain; loss of appetite; No vomiting Musculoskeletal: No back pain, No joint pain Psychiatric/Neurological: Denies Headache; Numbness, Paresthesia; Denies Weakness Hematologic/Lymphatic: Anemia Past Nmcrzkl-Soekpp-Rqfvip Hx Past Med/Social Hx: Reviewed Nursing Past Med/Soc Hx Patient Social History 2nd Hand Smoke Exposure: No Recent Foreign Travel: No Contact w/Someone Who Travel: No (States her office has a Dr that traveled to [place], [place]) Recent Infectious Disease Expo: No Recent Hopitalizations: No Seasonal Allergies Seasonal Allergies: Yes Past Medical History Surgeries: No Respiratory: No Cardiac: No Neurological: No Genitourinary: No Gastrointestinal: No Musculoskeletal: No Endocrine: No HEENT: No Cancer: No Psychosocial: Yes Anxiety Integumentary: No Blood Disorders: No Physical Exam Vital Signs Vital Signs - First Documented 06/14/19 13:12 Temp 36.8 Pulse 79 Resp 22 B/P (MAP) 131/95 (107) Pulse Ox 98 O2 Delivery Room Air Capillary Refill : Less Than 3 Seconds Height, Weight, BMI Height: '" Weight: lbs. oz. kg; 20.00 BMI Method: General Appearance: No Apparent Distress, WD/WN HEENT: PERRL/EOMI, Normal ENT Inspection Neck: Non Tender, Supple Respiratory: Chest Non Tender, Lungs Clear Cardiovascular: Regular Rate, Rhythm, No Edema, No Gallop, No Murmur, Normal Peripheral Pulses Extremity: Normal Capillary Refill, Normal Inspection, Normal Range of Motion, Non Tender, No Calf Tenderness Neurologic/Psychiatric: Alert, Oriented x3, No Motor/Sensory Deficits, Normal Mood/Affect, egg packer II-XII Norm as Tested Skin: Normal Color, Warm/Dry Progress/Results/Core Measures Suspected Sepsis Recent Fever Within 48 Hours: No Infection Criteria Present: None New/Unexplained Altered Menta: No Sepsis Screen: No Definite Risk SIRS Temperature: Pulse: 79 Respiratory Rate: 22 Blood Pressure 131 /95 Mean: 107 Results/Orders Vital Signs/I&O 06/14/19 13:12 Temp 36.8 Pulse 79 Resp 22 B/P (MAP) 131/95 (107) Pulse Ox 98 O2 Delivery Room Air Capillary Refill : Less Than 3 Seconds Blood Pressure Mean: 107 Progress Note : Progress Note Unable to view labs from outpatient clinic.....per pt information she is Hyperthyroid and was given Rx for Propranolol and told she would be sent to Vascular Radiologist. Most of her somatic symptomotology fits a presumed Dx of Hyperthyroidism w associated and documented Anemia. Reassurance given, strongly urged to take Propranolol as instructed and not to expect any change if not taking it. Departure Impression Primary Impression: Anemia Qualified Codes: D50.9 - Iron deficiency anemia, unspecified Additional Impressions: Hyperthyroidism Paresthesia of arm Disposition: 01 HOME, SELF-CARE Condition: Stable Departure-Patient Inst. Decision time for Depature: 13:34 Referrals: ALLY SOLIS APRN (PCP/Family) Primary Care Physician Patient Instructions: Hyperthyroidism (Overactive Thyroid), Paresthesias (DC), Anemia Caused by Low Iron Add. Discharge Instructions: Follow up with your PCP about getting an appointment with the Vascular Radiologist. Take your Propranolol twice daily as instructed. All discharge instructions reviewed with patient and/or family. Voiced understanding. BROOKLYNN COATES DO Jun 14, 2019 13:35
== END 2019-06-14 13:38 | disposition home or self-care (01) ==
LOC: EDUNIT# 12:59 → ER FS 13:01
DX: D64.9 Anemia, unspecified (principal); E05.90 Thyrotoxicosis, unspecified without thyrotoxic crisis or storm; R20.0 Anesthesia of skin
CPT/HCPCS: 99281

== ENCOUNTER → 2020-03-18 | Outpatient (CLI) | payer OTHER, MEDICAID ==
[2020-03-18 11:39] LABS: MEAN PLATELET VOLUME 10.3 FL (7.4-10.4); WHITE BLOOD COUNT 12.5 10^3/uL (4.3-11.0)
[2020-03-18 12:04] LABS: BUN/CREATININE RATIO 9; CARBON DIOXIDE 26 MMOL/L (21-32); CHLORIDE 104 MMOL/L (98-107); CREATININE SERUM 0.57 MG/DL (0.60-1.30); GFR ESTIMATED > 60; POTASSIUM 3.9 MMOL/L (3.6-5.0); SODIUM 139 MMOL/L (135-145)
[2020-03-18 12:05] LABS: ALANINE AMINOTRANSFERASE 9 U/L (0-55); ALBUMIN 3.4 GM/DL (3.2-4.5); ALKALINE PHOSPHATASE 126 U/L (40-136); BILIRUBIN,TOTAL 0.2 MG/DL (0.1-1.0); CALCIUM 8.8 MG/DL (8.5-10.1); GLUCOSE 66 MG/DL (70-105); TOTAL PROTEIN 5.8 GM/DL (6.4-8.2)
[2020-03-18 15:03] LABS: URIC ACID 3.8 MG/DL (2.6-7.2)
[2020-03-18 15:07] LABS: URINE CREATININE FOR RATIO 27 MG/DL (30-125)
[2020-03-18 15:08] LABS: URINE PROTEIN FOR RATIO ONLY < 6 MG/DL (6-12)
== END ==
LOC: LAB FS 10:21
DX: O16.3 Unspecified maternal hypertension, third trimester (principal); O09.293 Supervision of pregnancy with other poor reproductive or obstetric history, third trimester; Z3A.00 Weeks of gestation of pregnancy not specified
CPT/HCPCS: 36415; 80053; 82570; 83615; 84156; 84550; 85027

== ENCOUNTER 2022-03-13 19:08 | Emergency (ER) | payer MEDICAID, OTHER ==
[~2022-03-13] VITALS: Ht 147 cm; Wt 48.6 kg
[2022-03-13] MEDS ORDERED: RT-ALBUTEROL/IPRATROPIUM 3 ML (DUONEB) VIAL INH ONE (19:45)
--- NOTE | 2022-03-13 20:03 | ED Cough/URI ---
General Chief Complaint: Respiratory Problems Stated Complaint: SOB,DIZZY Source: patient History of Present Illness Date Seen by Provider: Mar 13, 2022 Time Seen by Provider: 19:21 Initial Comments 36-year-old female patient with history of hypothyroidism, seasonal allergies, anxiety complaining of cough and congestion and shortness of breath. Patient st ates for the last 2 months she has had episodes of cough and congestion with sick contact at home. Patient was seen at urgent care recently and is started on doxycycline, Medrol Dosepak, albuterol inhaler with diagnosis of pneumonia and bronchitis without having chest x-ray or flu/COVID test. Patient states she using albuterol nebulizer belonged to her daughter and her own inhaler without improvement of her shortness of breath. Patient states she has history of hypothyroidism and thyroid storm 2 years with concern for another thyroid storm. Patient also states she lost her brother last month and feels more anxious. Allergies and Home Medications Allergies Coded Allergies: No Known Drug Allergies (Unverified , 06/02/19) Patient Home Medication List Home Medication List Reviewed: Yes Albuterol Sulfate (Ventolin Hfa) 1 Puff Puff, 2 PUFF INH Q4H Prescribed by: SAROJ THOMAS on 06/01/19 1623 Albuterol Sulfate (Albuterol Sulfate) 2.5 Mg/3 Ml (0.083 %) Vial.neb, 2.5 MG INH QID Prescribed by: Aileen donaldson on 03/13/222020 Amoxicillin/Potassium Clav (Augmentin 875-125 Tablet) 1 Each Tablet, 1 EACH PO BID Prescribed by: MARISSA FONSECA on 06/04/19 0327 Azithromycin (Zithromax) 250 Mg Tablet, 250 MG PO UD Prescribed by: Aileen donaldson on 03/13/222020 Benzonatate (Tessalon Perles) 100 Mg Capsule, 100 MG PO QID PRN for cough Prescribed by: Aileen donaldson on 03/13/222020 Ferrous Sulfate (Iron) 325 Mg Tablet, 325 MG PO BID Prescribed by: MARÍA STOKES on 06/06/19 1196 Hydroxyzine HCl (Hydroxyzine HCl) 25 Mg Tablet, 25 MG PO qhs PRN for anxiety Prescribed by: Aileen donaldson on 03/13/222020 Ondansetron (Ondansetron Odt) 4 Mg Tab.rapdis, 4 MG PO Q6H Prescribed by: MARÍA STOKES on 06/06/19 0859 Review of Systems Review of Systems Constitutional: see HPI EENTM: see HPI Respiratory: see HPI Cardiovascular: see HPI Gastrointestinal: see HPI Genitourinary: see HPI Musculoskeletal: see HPI Skin: see HPI Psychiatric/Neurological: See HPI Hematologic/Lymphatic: See HPI Immunological/Allergic: see HPI All Other Systems Reviewed Negative Unless Noted: Yes Past Fpetvdd-Wbupzz-Nksjiv Hx Seasonal Allergies Seasonal Allergies: Yes Past Medical History Surgeries: No Respiratory: No Cardiac: Yes Palpitations Neurological: No Genitourinary: No Gastrointestinal: No Musculoskeletal: No Endocrine: Yes Hyperthyroidism HEENT: No Cancer: No Psychosocial: Yes Anxiety Integumentary: No Blood Disorders: No Physical Exam Capillary Refill : Height: '" Weight: lbs. oz. kg; 20.00 BMI Method: General Appearance: mild distress (Anxious) HEENT: PERRL/EOMI, normal ENT inspection, TMs normal, pharynx normal Neck: non-tender, full range of motion, supple, normal inspection Respiratory: chest non-tender, lungs clear, normal breath sounds, no respiratory distress, no accessory muscle use Cardiovascular: regular rate, rhythm, no edema, no gallop, no JVD, no murmur Gastrointestinal: normal bowel sounds, non tender, soft Extremities: normal range of motion, no pedal edema Neurologic/Psychiatric: no motor/sensory deficits, alert, oriented x 3, other (Anxious) Skin: normal color, warm/dry Lymphatic: no adenopathy Progress/Results/Core Measures Suspected Sepsis SIRS Temperature: Pulse: Respiratory Rate: Blood Pressure / Mean: Results/Orders My Orders Orders - AILEEN DONALDSON MD Chest Pa/Lat (2 View) (03/13/22 19:32) Albuterol/Ipra Inhalation Soln (Duoneb I (03/13/22 19:45) Svn Small Volume Nebulizer (03/13/22 19:32) Medications Given in ED Current Medications Medications Dose Ordered Sig/Zeina Route Start Time Stop Time Status Last Admin Dose Admin Albuterol/ Ipratropium 3 ml ONCE ONCE INH 03/13/22 19:45 03/13/22 19:46 DC 03/13/22 19:47 3 ML Vital Signs/I&O Capillary Refill : Progress Note : Progress Note Patient with complaining of cough and congestion and shortness of breath and currently on doxycycline and Medrol Dosepak and nebulizer and inhaler treatment with O2 sat of 100%. Patient had unremarkable physical exam except for anxiety. Chest x-ray was unremarkable. Patient was concerned for her thyroid test and possible anemia. Patient did not have signs of anemia or thyroid storm in physical exam and was advised to follow-up with her primary care physician for checking her TSH and hemoglobin. Prescription for Zithromax and Tessalon and albuterol inhaler was given. Patient had anxiety and not taking any medication. Prescription for hydroxyzine was given. Patient advised to follow-up with her primary care physician and return to ER as needed. Patient informed about test results and plan of care and needs to follow-up and all questions was addressed. Diagnostic Imaging Diagonstic Imaging: Xray (Chest x-ray) Comments Chest x-ray interpreted by radiologist and reviewed by me and showed: NAME: MICHAEL BRANDT [facility] REC#: [id number] PT STATUS: REG ER : 1985 PHYSICIAN: AILEEN DONALDSON MD ADMIT DATE: 03/13/22/ER FS Signed Date of Exam:03/13/22 CHEST PA/LAT (2 VIEW) EXAMINATION: Chest 2 view HISTORY: Cough and shortness of breath COMPARISON: None available. FINDINGS: Heart size and pulmonary vasculature are normal. The lungs are clear without consolidation, pleural effusion, or pneumothorax. The osseous structures are intact. IMPRESSION: 1. No acute radiographic abnormality in the chest. Dictated by: Dictated on workstation # [id number] Dict: 03/13/222005 Trans: 03/13/222007 FABI [id number] Interpreted by: BETSY MCQUEEN DO Electronically signed by: BETSY MCQUEEN DO 03/13/222007 Departure Impression Primary Impression: Acute bronchitis Qualified Codes: J20.9 - Acute bronchitis, unspecified Disposition: 01 HOME, SELF-CARE Condition: Stable Departure-Patient Inst. Decision time for Depature: 20:15 Referrals: OMAIRA JOHN MD (PCP/Family) Primary Care Physician Patient Instructions: Acute Bronchitis, Cough, Adult (DC) Add. Discharge Instructions: Follow-up with your primary care physician for checking your thyroid levels and hemoglobin regarding hyperthyroidism and anemia work-up Drink plenty of liquid Continue home medication Return to ER as needed All discharge instructions reviewed with patient and/or family. Voiced unde rstanding. Scripts Hydroxyzine HCl (Hydroxyzine HCl) 25 Mg Tablet 25 MG PO qhs PRN for anxiety, #10 TAB Prov: AILEEN DONALDSON MD 03/13/22 Albuterol Sulfate (Albuterol Sulfate) 2.5 Mg/3 Ml (0.083 %) Vial.neb 2.5 MG INH QID for Shortness of Breath, #25 EA Prov: AILEEN DONALDSON MD 03/13/22 Benzonatate (TESSALON PERLES) 100 Mg Capsule 100 MG PO QID PRN for cough, #20 CAP Prov: AILEEN DONALDSON MD 03/13/22 Azithromycin (Zithromax) 250 Mg Tablet 250 MG PO UD, #6 TAB TAKE 2 TABLETS TODAY, THEN TAKE 1 TABLET DAILY FOR 4 MORE DAYS Prov: AILEEN DONALDSON MD 03/13/22 AILEEN DONALDSON MD Mar 13, 2022 20:03
--- NOTE | 2022-03-13 20:08 | Diagnostic Imaging Report ---
EXAMINATION: Chest 2 view HISTORY: Cough and shortness of breath COMPARISON: None available. FINDINGS: Heart size and pulmonary vasculature are normal. The lungs are clear without consolidation, pleural effusion, or pneumothorax. The osseous structures are intact. IMPRESSION: 1. No acute radiographic abnormality in the chest. Dictated by: Dictated on workstation # [id number]
[2022-03-13] MEDS ORDERED: BENZ100C18 PO (20:21)
[2022-03-13] MEDS ORDERED: HYDR-700 PO (20:21)
[2022-03-13] MEDS ORDERED: AZIT250T PO (20:21)
[2022-03-13] MEDS ORDERED: ALBU2.5V4 INH (20:21)
[2022-03-13 20:50] VITALS: BP 138/88
== END 2022-03-13 20:50 | disposition home or self-care (01) ==
LOC: EDUNIT# 19:08 → ER FS 19:09
DX: J20.9 Acute bronchitis, unspecified (principal); J18.9 Pneumonia, unspecified organism; F41.9 Anxiety disorder, unspecified; Z28.310 Unvaccinated for COVID-19; Z79.899 Other long term (current) drug therapy
CPT/HCPCS: 71046; 94640